=== PATIENT | female | born 1975 | race Caucasian/White ===

== ENCOUNTER 2024-12-08 18:39 | Inpatient (IN) | payer OTHER ==
[~2024-12-08] VITALS: Ht 160 cm; Wt 70.0 kg
[~2024-12-08 18:39] MED LIST: IBUP-1456 PO
[2024-12-08] MEDS ORDERED: KETOROLAC TROMETH 30 MG/ML 1ML VIAL IV PRN (19:30)
[2024-12-08 20:27] LABS: Basophils # (auto) 0 10 ^3/uL (0-0.2); Basophils % (auto) 0.1 % (0.0-2.0); Eosinophils # (auto) 0.1 10 ^3/uL (0-0.8); Eosinophils % (auto) 0.9 % (0.0-7.0); Hematocrit 37.9 % (36.0-46.0); Hemoglobin 12.8 g/dL (12.2-16.2); Lymphocytes # (auto) 0.7 10 ^3/uL (0.4-5.4); Lymphocytes % (auto) 10.3 % (10.0-50.0); Mean Corpuscular Hemoglobin 31.2 pg (28.0-32.0); Mean Corpuscular Hgb Conc. 33.7 g/dL (32.0-36.0); Mean Corpuscular Volume 92.7 fL (80.0-100.0); Monocytes # (auto) 0.4 10 ^3/uL (0-1.3); Monocytes % (auto) 5.7 % (0.0-12.0); Nucleated Red Blood Cells % 0.1 %; Platelet Count (auto) 283 10^3/uL (140-450); Red Blood Cells 4.09 10^6/uL (4.0-5.20); Red Cell Distribution Width 13.4 % (11.8-14.3); White Blood Cell 7.2 10^3/uL (4.4-10.8)
--- NOTE | 2024-12-08 20:27 | ED.PDOC ---
Altered Mental Status HPI Comments Cori Dominique is a 49-year-old female patient who presents to ED with chief complaint of loss of consciousness which lasted less than 1 minute with no prodromes, this occurred a few seconds after standing up after finishing with her work, who was by standard NSAID that she did not present any abnormal movements during loss of consciousness. Associated she presented dizziness, which is apparently very common since age of 23, but has been increasing in frequency for this past month. Patient reports these symptoms have constantly happened since receiving the radiotherapy due to laryngeal cancer at age of 23. She also reports she was never evaluated by a certified medical dosimetrist nor neurologist. She also reports episodes of constipation which happened occurring chronically (she associates it after receiving gastric sleeve surgery), up to two weeks. Denies fever, chills, palpitation, chest pain, dyspnea, nausea, vomiting, diarrhea, bleeding, dysuria and motor or sensory deficits. Past medical history: Multiple syncopal with prodromes episodes which were attributed to anemia/UTIs, laryngeal cancer status post treatment with radiotherapy at [facility] (age 23) hypothyroidism Surgical history: Gastric sleeve surgery nine years ago. Appendectomy, tonsillectomy Family history: Denies Social history: Lives in [place] with and two daughters. Smokes marijuana. Denies current tobacco, alcohol and other drug abuse Allergies: Narcotics/opiates, morphine Home medication: Laxative and levothyroxine. Chief Complaint: Syncope Time Seen by MD: 18:59 Allergies: Coded Allergies: Morphine (Verified Allergy, Unknown, 12/08/24) Uncoded Allergies: OPIATES (Allergy, Mild, 11/28/23) PT STATES NAUSEA AND VOMITING WITH ANY OPIATES. Home Meds Active Scripts Ibuprofen (Ibuprofen) 800 Mg Tab, 1 TAB PO TID PRN, #30 TAB 0 Refills Prov:JASON VORA 11/28/23 Reported Medications Levothyroxine Sodium (Levothyroxine Sodium) 75 Mcg Tab, 1 TAB PO DAILY, #30 TAB 5 Refills 12/09/24 Doxepin Hcl (Doxepin Hcl) 10 Mg Cap, 1 CAP PO QPM, #30 CAP 2 Refills 12/09/24 Mode of Arrival: EMS Past Medical History PAST MEDICAL HISTORY: Denies Surgical History: Denies all surgeries LACQUER SIZER History: No Pertinent LACQUER SIZER History Family History Family History: Unknown Social History Smoker: Non-Smoker Alcohol: Denies ETOH Use Drugs: Denies Drug Use Lives In: Home Physical Exam General Appearance: No Apparent Distress, Normal HEENT: Normal ENT Inspection, Pharynx Normal, TMs Normal Neck: Full Range of Motion, Non-Tender, Normal, Normal Inspection Respiratory: Chest Non-Tender, Lungs Clear, No Accessory Muscle Use, No Respiratory Distress, Normal Breath Sounds Cardiovascular: No Edema, No JVD, No Murmur, No Gallop, Normal Peripheral Pulses, Regular Rate/Rhythm Breast Exam: Deferred Gastrointestinal: No Organomegaly, Non Tender, No Pulsatile Mass, Normal Bowel Sounds, Soft Genitalia: Deferred Pelvic: Deferred Rectal: Deferred Extremities: No calf tenderness, Normal capillary refill, Normal inspection, Normal range of motion, Non-tender, No pedal edema Neurologic: Alert, maritime officer II-XII nml as Tested, No Motor Deficits, Normal Affect, Normal Mood, No Sensory Deficits Cerebellar Function: Normal Reflexes: Normal Skin: Dry, Normal Color, Warm Lymphatic: No Adenopathy Was a procedure done? Was a procedure done?: No Differential Diagnosis (ALOC) Differential Diagnosis: Dehydration, Seizure, CVA, Drug Overdose X-Ray, Labs, Meds, VS Vital Signs Date Time Temp Pulse Resp B/P (MAP) Pulse Ox O2 Delivery O2 Flow Rate FiO2 12/08/24 21:20 89 16 100 Room Air* 0 21 12/08/24 21:20 98.5 89 16 111/64 (80) 100 98.5 12/08/24 18:48 79 12/08/24 18:47 97.2 76 20 102/76 (85) 98 Lab Test 12/08/24 21:10 12/08/24 19:50 Range/Units Urine Color Colorless Yellow Urine Clarity Turbid H Clear Urine pH 6.0 5.0-9.0 Urine Specific [place] 1.009 1.001-1.035 Urine Protein Negative Negative Urine Ketones Trace Negative Urine Blood Negative Negative /uL Urine Nitrite Negative Negative Urine Bilirubin Negative Negative Urine Urobilinogen Normal Negative mg/dL Urine Leukocyte Esterase 2+ Negative /uL Urine RBC 5 0 - 4 /hpf Urine WBC 13 0 - 5 /hpf Urine Squamous Epithelial Cells Few <5 /hpf Urine Bacteria None seen None Seen /hpf Urine Glucose Normal Normal mg/dL Urine Test Negative Negative Urine Opiates Screen Neg NEGATIVE Urine Fentanyl Screen Neg NEGATIVE Urine Barbiturates Screen Neg NEGATIVE Urine Phencyclidine Screen Neg NEGATIVE Urine Amphetamines Screen Neg NEGATIVE Urine Benzodiazepines Screen Neg NEGATIVE Urine Cocaine Screen Neg NEGATIVE Urine Cannabinoids Screen Pos NEGATIVE White Blood Count 7.2 4.4-10.8 10^3/uL Red Blood Count 4.09 4.0-5.20 10^6/uL Hemoglobin 12.8 12.2-16.2 g/dL Hematocrit 37.9 36.0-46.0 % Mean Corpuscular Volume 92.7 80.0-100.0 fL Mean Corpuscular Hemoglobin 31.2 28.0-32.0 pg Mean Corpuscular Hemoglobin Concent 33.7 32.0-36.0 g/dL Red Cell Distribution Width 13.4 11.8-14.3 % Platelet Count 283 140-450 10^3/uL Mean Platelet Volume 7.4 6.9-10.8 fL Neutrophils (%) (Auto) 83.0 H 37.0-80.0 % Lymphocytes (%) (Auto) 10.3 10.0-50.0 % Monocytes (%) (Auto) 5.7 0.0-12.0 % Eosinophils (%) (Auto) 0.9 0.0-7.0 % Basophils (%) (Auto) 0.1 0.0-2.0 % Neutrophils # (Auto) 6.0 1.6-8.6 10 ^3/uL Lymphocytes # (Auto) 0.7 0.4-5.4 10 ^3/uL Monocytes # (Auto) 0.4 0-1.3 10 ^3/uL Eosinophils # (Auto) 0.1 0-0.8 10 ^3/uL Basophils # (Auto) 0 0-0.2 10 ^3/uL Nucleated Red Blood Cells 0.1 % Prothrombin Time 10.5 9.3-11.8 sec Prothrombin Time INR 0.99 0.9-1.15 Activated Partial Thromboplast Time 28.1 24.5-34.5 SEC Sodium Level 139 136-145 mmol/L Potassium Level 3.6 3.5-5.1 mmol/L Chloride Level 106 98-107 mmol/L Carbon Dioxide Level 26 20-31 mmol/L Anion Gap 7 5-15 Blood Urea Nitrogen 8 L 9-23 mg/dL Creatinine 0.75 0.550-1.02 mg/dL Glomerular Filtration Rate Calc 98 >90 mL/min BUN/Creatinine Ratio 10.7 10.0-20.0 Serum Glucose 87 74-106 mg/dL Lactic Acid Level 0.9 0.4-2.0 mmol/L Calcium Level 9.6 8.7-10.4 mg/dL Magnesium Level 2.1 1.6-2.6 mg/dL Total Bilirubin 0.7 0.2-1.0 mg/dL Aspartate Amino Transferase (AST) < 8 L 13-40 U/L Alanine Aminotransferase (ALT) 18 7-40 U/L Alkaline Phosphatase 64 46-116 U/L Ammonia < 10 L 11-32 umol/L Total Protein 6.2 5.7-8.2 g/dL Albumin 4.2 3.2-4.8 g/dL Thyroid Stimulating Hormone (TSH) 0.31 L 0.55-4.78 uIU/mL Free Thyroxine (T4) Calculated 1.42 0.89-1.76 ng/dL Free Triiodothyronine (T3) pg/mL 2.28 L 2.3-4.2 pg/mL X-Ray, Labs, Meds, VS Comment Addendum by Dr. Tg Lackey: Pt seen in conjunction with Dr Sosa. Agree with assessment, tx and plan. Time of 1ST Reevaluation: 20:26 Reevaluation 1ST: Improved Patient Education/Counseling: Diagnosis, Treatment, Prognosis, Need For Follow Up Family Education/Counseling: Diagnosis, Treatment, Prognosis, Need For Follow Up Departure 1 Departure Time of Disposition: 22:12 Impression: Primary Impression: Syncopal episodes Additional Impressions: Carotid sinus syncope Orthostatic syncope Disposition: 30 STILL A PATIENT Condition: Stable Additional Instructions: Received partial laboratories which were within normal limits accept TSH which was low, ordered free T3 and T4. X-rays and head CT were within normal limits. Carotid ultrasound showed severe external carotid stenosis, but no internal or common carotid stenosis. Recommended this time telemetry for at least 24-48 hours, complete echocardiogram, and rule out cardiac neurological causes of syncope at this point (patient was never evaluated by the specialist). We will admit patient to hospital. Critical Care Note Critical Care Time?: No Stability Stability form required: No Heart Score Heart Score: Heart Score Response (Comments) Value History N/A 0 EKG N/A 0 Age N/A 0 Risk Factors N/A 0 Troponin N/A 0 Total 0 NIKOLAI SOSA Dec 08, 2024 20:27 WARREN JOVEL MD Dec 10, 2024 04:27
[2024-12-08 20:38] LABS: Alanine Aminotransferase 18 U/L (7-40); Albumin 4.2 g/dL (3.2-4.8); Alkaline Phosphatase 64 U/L (46-116); Anion Gap 7 (5-15); BUN/Creatinine Ratio 10.7 (10.0-20.0); Calcium 9.6 mg/dL (8.7-10.4); Carbon Dioxide 26 mmol/L (20-31); Chloride 106 mmol/L (98-107); Glucose 87 mg/dL (74-106); Magnesium 2.1 mg/dL (1.6-2.6); Potassium 3.6 mmol/L (3.5-5.1); Sodium 139 mmol/L (136-145)
[2024-12-08 20:39] LABS: Aspartate Aminotransferase < 8 U/L (13-40); Bilirubin, Total 0.7 mg/dL (0.2-1.0); Blood Urea Nitrogen 8 mg/dL (9-23); Total Protein 6.2 g/dL (5.7-8.2)
[2024-12-08 20:41] LABS: INR 0.99 (0.9-1.15); Partial Thromboplastin Time 28.1 SEC (24.5-34.5); Prothrombin Time 10.5 sec (9.3-11.8)
--- NOTE | 2024-12-08 20:59 | DVH ---
US CAROTID DOPPLER CLINICAL INDICATION: Syncope TECHNIQUE: Multiple grayscale, color Doppler and spectral Doppler ultrasound images were obtained thr oughout both carotid systems. COMPARISON: None FINDINGS: RIGHT: CCA PSV: 74 cm/s ECA PSV: 461 cm/s proximally ICA PSV: 134 cm/s ICA EDV: 55 cm/s ICA/CCA Ratio: Less than 2 Vertebral artery: Patent, antegrade flow. Grayscale images demonstrate calcified plaque at the carotid bifurcation. Marked stenosis of the prox imal external carotid artery. Spectral analysis demonstrates no hemodynamically significant CCA or IC A stenosis. LEFT: CCA PSV: 69 cm/s ECA PSV: 54 cm/s ICA PSV: 98 cm/s ICA EDV: 41 cm/s ICA/CCA Ratio: Less than 2 Vertebral artery: Patent, antegrade flow. Grayscale images demonstrate no significant plaque or visible stenosis. Spectral analysis demonstrate s no hemodynamically significant CCA or ICA stenosis. IMPRESSION: 1. No evidence of hemodynamically significant CCA or ICA stenosis. 2. High-grade stenosis of the proximal right external carotid artery.
--- NOTE | 2024-12-08 21:06 | DVH ---
EXAM: XY R ELBOW 3 VIEW XRAY CLINICAL HISTORY: Syncope COMPARISON: XY R WRIST 3+ VIEW XRAY on DOS: 11/28/23 TECHNIQUE: XY R ELBOW 3 VIEW XRAY Findings/Impression: 3 views of the right elbow. There is no evidence of an acute fracture, dislocation, blastic, or lytic lesions. No radiopaque foreign bodies. No joint effusion or superficial soft tissue abnormalities.
--- NOTE | 2024-12-08 21:10 | DVH ---
EXAM: CT HEAD WITHOUT CONTRAST INDICATION: Syncope TECHNIQUE: CT of the head without intravenous contrast. Radiation Dose Information: CT Dose: CTDI volume is 51.07 mGy. Dose-length product is 818.88 mGy*cm The dose indicators for CT are the volume Computed Tomography (CT) Dose Index (CTDIvol) and the Dose Length Product (DLP), and are measured in units of mGy and mGy-cm, respectively. These indicators are not patient dose, but values generated from the CT scanner acquisition factors. The report includes radiation exposure data for exposures received during this examination. COMPARISON: CT CERVICAL WITHOUT CONTRAST on DOS: 11/28/23, CT HEAD WITHOUT CONTRAST on DOS: 11/28/23 FINDINGS: There is no evidence of acute intracranial hemorrhage, extra-axial collection, mass effect, midline s hift, herniation or hydrocephalus. The ventricles, sulci and cisterns are age appropriate. The rodas-white differentiation is intact. Patchy periventricular and subcortical white matter hypoattenuation is nonspecific but may be related to small vessel ischemic disease. The visualized paranasal sinuses and mastoid air cells are clear. The surrounding soft tissues and osseous structures are unremarkable. IMPRESSION: 1. No acute intracranial hemorrhage 2. No CT findings of territorial ischemia. HS:Y
--- NOTE | 2024-12-08 21:11 | DVH ---
EXAM: XY R WRIST 3+ VIEW XRAY CLINICAL HISTORY: Syncope COMPARISON: XY L WRIST 3+ VIEW XRAY on DOS: 11/28/23, XY R WRIST 3+ VIEW XRAY on DOS: 11/28/23 TECHNIQUE: XY R WRIST 3+ VIEW XRAY Findings/Impression: 3 views of the right wrist. There is no evidence of an acute fracture, dislocation, blastic, or lytic lesions. No radiopaque foreign bodies. No joint effusion or superficial soft tissue abnormalities.
--- NOTE | 2024-12-08 21:12 | DVH ---
CLINICAL INDICATION: Syncope TECHNIQUE: 3 radiographic views of the left hip were obtained. Comparison: XY R HIP COMPLETE XRAY on DOS: 11/28/23 FINDINGS/IMPRESSION: There is no evidence of acute fracture or dislocation. Radiopaque foreign body in the left abdomen may be in the descending colon The visualized joint space is well maintained. The alignment is anatomical. There is no radiopaque foreign body. HS:Y
[2024-12-08 21:20] VITALS: PULSE 89; RESP 16; O2SAT 100
[2024-12-08] MEDS: SODIUM CHLORIDE 0.9% 1,000 ML IV SCH (21:23)
[2024-12-08] MEDS: SODIUM CHLORIDE 0.9% 1,550 ML IV ONE (21:23)
[2024-12-08] MEDS: KETOROLAC TROMETH 30 MG/ML 1ML VIAL IV ONE (21:23)
[2024-12-08 21:55] LABS: Urine Bacteria None Seen /hpf (None Seen)
[2024-12-08 22:17] LABS: Urine Blood Negative /uL (Negative); Urine Clarity Turbid (Clear); Urine Color Colorless (Yellow); Urine Protein, UAD Negative (Negative); Urine Specific Gravity 1.009 (1.001-1.035); Urine Squamous Epithelial Cell FEW /hpf (<5); Urine Urobilinogen Normal (Negative); Urine WBC 13 /hpf (0 - 5)
[2024-12-08 22:22] LABS: Benzodiazephine Screen, Urine Neg (NEGATIVE); Cannabinoid Screen, Urine Pos (NEGATIVE)
[2024-12-08 22:26] LABS: Amphetamine Screen, Urine Neg (NEGATIVE); Barbiturate Scree,Urine Neg (NEGATIVE); Cocaine Screen, Urine Neg (NEGATIVE); Opiate Scree,Urine Neg (NEGATIVE); Phencyclidine Screen, Urine Neg (NEGATIVE)
[2024-12-08 22:29] LABS: Free T3 2.28 pg/mL (2.3-4.2)
[2024-12-08 22:30] LABS: Free T4 (Free Thyroxine) 1.42 ng/dL (0.89-1.76)
--- NOTE | 2024-12-08 22:45 | DVHHPRES ---
History of Present Illness Resident Creating Document: DEMETRIO ROBERTS RESIDENT History of Present Illness Patient is a 49-year-old female with past medical history of laryngeal carcinoma diagnosed 26 years ago s/p radiotherapy for 10 weeks daily, anemia s/p multiple transfusions, nutritional deficiency likely due to gastric sleeve, anxiety, hypothyroidism who came in due to syncope. According to the patient, for the past 6 weeks she has been experiencing presyncope/dizziness, she went to her PCP and was diagnosed with pyelonephritis on 11/26/2024 and was subsequently treated with Augmentin 875 b.i.d. for 10 days. Today in the evening on 12/08/2024 patient was walking when she had an episode of loss of consciousness lasting almost 1 minute, she denies any prodromal symptoms and states the next thing she knew she was lying on the floor. Patient also notes that she felt confused and foggy afterwards and sustained a bruise on her left hip, left knee, right wrist and hit the back of her head. Head CT showed no acute intracranial hemorrhage. Carotid Doppler showed no evidence of hemodynamically significant CCA or ICA stenosis. High-grade stenosis of the proximal right external carotid artery. Past hospitalization: In 2022 for pyelonephritis leading to sepsis Home medications: Doxepin, Klonopin, levothyroxine Past Medical History laryngeal carcinoma diagnosed 26 years ago s/p radiotherapy for 10 weeks daily, anemia s/p multiple transfusions, nutritional deficiency likely due to gastric sleeve, anxiety, hypothyroidism Past Surgical History Gastric Sleeve surgery 9 years ago, appendectomy, tonsillectomy Smoke: No ALCOHOL: rare Drugs: None Lives: with Family Review of Systems Constitutional: Yes: Chills, Malaise; No: Fever, Sweats, Weakness, Other Eyes: No: Pain, Vision change, Conjunctivae inflammation, Eyelid inflammation, Other, Redness ENT: No: Ear pain, Ear discharge, Nose pain, Nose discharge, Nose congestion, Mouth pain, Mouth swelling, Throat pain, Throat swelling, Other Respiratory: No: Cough, Dry, Shortness of breath, SOB with excertion, Wheezing, Hemoptysis, Pleuritic Pain, Sputum, Wheezing, Other Cardiovascular: Palpitations; No: Chest Pain, Orthopnea, Paroxysmal Noc. Dyspnea, Edema, Lt Headedness, Other Gastrointestinal: Constipation; No: Nausea, Vomiting, Abdominal Pain, Diarrhea, Melena, Hematochezia, Other Genitourinary: No Dysuria, No Frequency, No Incontinence, No Hematuria, No Retention, No Other Musculoskeletal: neck pain, arm pain, hand pain, leg pain; No: other, shoulder pain, back pain, foot pain Skin: No: Rash, Lesions, Jaundice, Bruising, Other Neurological: Confusion; No: Weakness, Numbness, Incoordination, Change in speech, Seizures, Other Allergies: Coded Allergies: Morphine (Verified Allergy, Unknown, 12/08/24) Uncoded Allergies: OPIATES (Allergy, Mild, 11/28/23) PT STATES NAUSEA AND VOMITING WITH ANY OPIATES. Medications Current Medications Medications Dose Ordered Sig/Charisma Route Start Time Stop Time Status Last Admin Dose Admin Sodium Chloride 1,000 ml @ 75 mls/hr [id number] IV 12/08/24 19:30 Ketorolac Tromethamine 15 mg Q6HPRN PRN IV 12/08/24 19:30 12/13/24 19:29 Exam Vital Signs Vital Signs Date Time Temp Pulse Resp B/P (MAP) Pulse Ox O2 Delivery O2 Flow Rate FiO2 12/08/24 21:20 89 16 100 Room Air* 0 21 12/08/24 21:20 98.5 111/64 (80) 98.5 General Appearance: Alert, Oriented X3, Cooperative, No acute distress HEENT: Atraumatic, PERRLA, EOMI, Mucous membr. moist/pink Respiratory: Clear to auscultation, Normal air movement Cardiovascular: Regular rate, Normal S1, Normal S2 Abdominal: Normal bowel sounds, Soft, No tenderness Extremities: No clubbing, No cyanosis, No edema, Normal pulses Skin: No rashes, No breakdown, No significant lesion Neuro: Normal gait, Normal speech, Strength at 5/5 X4 ext Psych/Mental Status: Mental status NL, Mood NL Labs/Xrays Labs Test 12/08/24 21:10 12/08/24 19:50 Range/Units Urine Color Colorless Yellow Urine Clarity Turbid H Clear Urine pH 6.0 5.0-9.0 Urine Specific [place] 1.009 1.001-1.035 Urine Protein Negative Negative Urine Ketones Trace Negative Urine Blood Negative Negative /uL Urine Nitrite Negative Negative Urine Bilirubin Negative Negative Urine Urobilinogen Normal Negative mg/dL Urine Leukocyte Esterase 2+ Negative /uL Urine RBC 5 0 - 4 /hpf Urine WBC 13 0 - 5 /hpf Urine Squamous Epithelial Cells Few <5 /hpf Urine Bacteria None seen None Seen /hpf Urine Glucose Normal Normal mg/dL Urine Test Negative Negative Urine Opiates Screen Neg NEGATIVE Urine Fentanyl Screen Neg NEGATIVE Urine Barbiturates Screen Neg NEGATIVE Urine Phencyclidine Screen Neg NEGATIVE Urine Amphetamines Screen Neg NEGATIVE Urine Benzodiazepines Screen Neg NEGATIVE Urine Cocaine Screen Neg NEGATIVE Urine Cannabinoids Screen Pos NEGATIVE White Blood Count 7.2 4.4-10.8 10^3/uL Red Blood Count 4.09 4.0-5.20 10^6/uL Hemoglobin 12.8 12.2-16.2 g/dL Hematocrit 37.9 36.0-46.0 % Mean Corpuscular Volume 92.7 80.0-100.0 fL Mean Corpuscular Hemoglobin 31.2 28.0-32.0 pg Mean Corpuscular Hemoglobin Concent 33.7 32.0-36.0 g/dL Red Cell Distribution Width 13.4 11.8-14.3 % Platelet Count 283 140-450 10^3/uL Mean Platelet Volume 7.4 6.9-10.8 fL Neutrophils (%) (Auto) 83.0 H 37.0-80.0 % Lymphocytes (%) (Auto) 10.3 10.0-50.0 % Monocytes (%) (Auto) 5.7 0.0-12.0 % Eosinophils (%) (Auto) 0.9 0.0-7.0 % Basophils (%) (Auto) 0.1 0.0-2.0 % Neutrophils # (Auto) 6.0 1.6-8.6 10 ^3/uL Lymphocytes # (Auto) 0.7 0.4-5.4 10 ^3/uL Monocytes # (Auto) 0.4 0-1.3 10 ^3/uL Eosinophils # (Auto) 0.1 0-0.8 10 ^3/uL Basophils # (Auto) 0 0-0.2 10 ^3/uL Nucleated Red Blood Cells 0.1 % Prothrombin Time 10.5 9.3-11.8 sec Prothrombin Time INR 0.99 0.9-1.15 Activated Partial Thromboplast Time 28.1 24.5-34.5 SEC Sodium Level 139 136-145 mmol/L Potassium Level 3.6 3.5-5.1 mmol/L Chloride Level 106 98-107 mmol/L Carbon Dioxide Level 26 20-31 mmol/L Anion Gap 7 5-15 Blood Urea Nitrogen 8 L 9-23 mg/dL Creatinine 0.75 0.550-1.02 mg/dL Glomerular Filtration Rate Calc 98 >90 mL/min BUN/Creatinine Ratio 10.7 10.0-20.0 Serum Glucose 87 74-106 mg/dL Lactic Acid Level 0.9 0.4-2.0 mmol/L Calcium Level 9.6 8.7-10.4 mg/dL Magnesium Level 2.1 1.6-2.6 mg/dL Total Bilirubin 0.7 0.2-1.0 mg/dL Aspartate Amino Transferase (AST) < 8 L 13-40 U/L Alanine Aminotransferase (ALT) 18 7-40 U/L Alkaline Phosphatase 64 46-116 U/L Ammonia < 10 L 11-32 umol/L Total Protein 6.2 5.7-8.2 g/dL Albumin 4.2 3.2-4.8 g/dL Thyroid Stimulating Hormone (TSH) 0.31 L 0.55-4.78 uIU/mL Free Thyroxine (T4) Calculated 1.42 0.89-1.76 ng/dL Free Triiodothyronine (T3) pg/mL 2.28 L 2.3-4.2 pg/mL Assessment/Plan Assessment/Plan Recurrent syncopal episodes Rule out stroke, cardiac etiology, carotid sinus hypersensitivity, doxepin induced? Stenosis of proximal right external carotid artery, high-grade - head CT: No acute intracranial abnormality - carotid Doppler: No evidence of hemodynamically significant CCA or ICA stenosis. High-grade stenosis of the proximal right external carotid artery. - elbow x-ray: There is no evidence of an acute fracture, dislocation, blastic, or lytic lesions. - hip x-ray: There is no evidence of acute fracture or dislocation. - wrist x-ray:There is no evidence of an acute fracture, dislocation, blastic, or lytic lesions. - IV NS at 75 cc/hour - orthostatic vital signs, iron panel, morning cortisol - neurology consulted - cardiology consulted - currently holding doxepin and clonazepam Hypothyroidism, TSH 0.31, free T4 1.42, free T3 2.28 - currently holding home levothyroxine History of laryngeal carcinoma 26 years ago, s/p radiotherapy - monitor Constipation - lactulose p.o. once Goals of care: Full code, discussed for >16 minutes on 12/09/2024 Plan discussed with patient Plan discussed with Dr. Colbert Plan discussed with: Patient, Other (RN) Date of Service: Dec 08, 2024 Billing Provider: KRISTI COLBERT MD Common Visit Codes: [id number] INP/OBS CARE (HIGH) DEMETRIO ROBERTS RESIDENT Dec 08, 2024 22:45 KRISTI COLBERT MD Dec 09, 2024 08:21
[2024-12-09] MEDS: IBUPROFEN 600 MG TAB PO PRN (01:10)
[2024-12-09] MEDS: LACTULOSE 20Gm/30ML SOLN PO ONE (01:10)
[2024-12-09 08:43] VITALS: PULSE 80; RESP 15; O2SAT 98
[2024-12-09] MEDS ORDERED: PANTOPRAZOLE 40 MG TAB PO SCH (09:00)
[2024-12-09 09:11] LABS: % Iron Saturation 19.1 % (15-50)
[2024-12-09] MEDS: PANTOPRAZOLE 40 MG TAB PO ONE (09:22)
--- NOTE | 2024-12-09 09:31 | DVHINCON2 ---
Date of service: Dec 09, [address] Rodney Reason for Consultation Syncope, confusion History of Present Illness Ms. Dominique is a 49 years old right-handed female with a history of laryngeal cancer, hypothyroidism, obesity, she was brought to the [facility] on 12/08/2024 with a chief company of passing out. At this time, she was alert and fully oriented, her is with her in the room, she provided the following history On 12/08/2024, she was walking inside the house, but the next memory was waking up from a passing out, with confusion and foggy feeling, but on waking up, she was consciousness to person, place, and she new she was working from home. She passed out for less than 1 minutes. There was no dizziness, hot feeling, chest pain, nausea, vomiting associated with event For the last 12 years, the patient was has had similar passing out event, but it was associated with dizziness as warning symptoms, and mostly the patient is able to see down to avoid a passing out. She typically pass out for less 1 minute, and on wake, she was conscious to everything. She was had total 6-7 event in 2023. She was seen many doctors in different offices, Hospital, but etiology remained unclear She does not paresthesia in the lower extremities She drinks about two bottles of water daily Urinalysis, 12/08/2024: WBC: 13, urine leukocyte esterase: 2+ UDS, 12/08/2024: Positive CBC, 12/08/2024: Unremarkable new line CMP, 12/08/2024: Unremarkable TSH, 12/08/2024: 0.31 FT4, 12/08/2024: 1.42 Carotid Doppler 12/08/2024: 1. No evidence of hemodynamically significant CCA or ICA stenosis. 2. High-grade stenosis of the proximal right external carotid artery CT head, 12/08/2024: 1. No acute intracranial hemorrhage 2. No CT findings of territorial ischemia. Past Medical History Multiple syncopal with prodromes episodes which were attributed to anemia/UTIs, laryngeal cancer status post treatment with radiotherapy at [facility] (age 23) hypothyroidism Past Surgical History Appendectomy, gastric sleeve (nine years ago), tonsillectomy Family History No major medical problems Social History She was not tobacco smoke, no history of alcohol or recreational substance abuse Allergies: Coded Allergies: Morphine (Verified Allergy, Unknown, 12/08/24) Uncoded Allergies: OPIATES (Allergy, Mild, 11/28/23) PT STATES NAUSEA AND VOMITING WITH ANY OPIATES. Home Meds Active Scripts Ibuprofen (Ibuprofen) 800 Mg Tab, 1 TAB PO TID PRN, #30 TAB 0 Refills Prov:JASON VORA SHAYLA 11/28/23 Current Medications Current Medications Medications (Trade) Dose Ordered Sig/Charisma Route PRN Reason Start Time Stop Time Status Last Admin Sodium Chloride 1,000 ml @ 75 mls/hr [id number] IV 12/08/24 19:30 12/09/24 08:46 Ketorolac Tromethamine (Toradol Injection) 15 mg Q6HPRN PRN IV MODERATE PAIN (4-6 PAIN SCALE) 12/08/24 19:30 12/13/24 19:29 Ibuprofen (Motrin Tablet) 600 mg Q6HP PRN PO PAIN SCALE 7 THRU 10 12/08/24 23:00 12/09/24 09:24 Pantoprazole Sodium (Protonix Tablet) 40 mg DAILY@0600 PO 12/09/24 09:00 12/09/24 09:13 DC Pantoprazole Sodium (Protonix Tablet) 40 mg DAILY@0600 PO 12/10/24 06:00 Review of Systems As above, the other systems are negative Vital Signs Vital Signs Date Time Temp Pulse Resp B/P (MAP) Pulse Ox O2 Delivery O2 Flow Rate FiO2 12/09/24 08:43 80 15 98 Room Air* 0 21 12/09/24 08:39 98.2 111/60 (77) 98.2 Physical Exam GENERAL EXAM: General: the patient is well developed and nourished. No acute distress. HEENT: Normocephalic, neck is supple, no carotid bruits. No mass. RESPIRATORY: Normal respiratory effort with symmetrical lung expansion. Lungs clear to auscultation. CARDIOVASCULAR: Regular rate and rhythm with no murmurs. S1, S2. ABDOMEN: Soft, nontender, normal bowel sound NEUROLOGICAL: MENTAL STATUS: Awake and alert. Oriented to person, place, time and general circumstances. Able to give personal history. SPEECH, LANGUAGE, HIGHER CORTICAL FUNCTION: No aphasia, mild dysarthria CRANIAL NERVES: #2: Intact visual mccarty to confrontation. The optic discs were sharp #3,4,6: Pupils are equal, round and reactive. EOMs full and conjugate. No nystagmus. #5: Facial sensation intact in all three divisions bilaterally. Mandibular strength intact. #7: Facial muscles symmetrical and strength intact. #8: Hearing grossly normal to voice. #9,10: Uvula and soft palate rise in the midline. Swallow and voice are normal. #11: Trapezius and sternomastoid strength intact bilaterally. #12: Tongue midline. No fasciculations or atrophy. SENSATION: Sensation to touch and pinprick is normal. MOTOR: Normal tone in the upper and lower extremity. Normal muscle bulk. No fasciculations. No abnormal movements or posturing. Muscle strength of the major groups in the upper extremities is 5/5. Muscle strength of the major groups in the lower extremities is 5/5. REFLEXES: Deep tendon reflexes are symmetrical. No pathological reflexes. CEREBELLAR/COORDINATION: Finger to nose is normal bilaterally. GAIT/STATION: deferred. Labs/Diagnostic Data Labs Test 12/09/24 07:36 12/08/24 21:10 12/08/24 19:50 Range/Units Cortisol AM Sample 15.05 5.27-22.45 ug/dL Urine Color Colorless Yellow Urine Clarity Turbid H Clear Urine pH 6.0 5.0-9.0 Urine Specific [place] 1.009 1.001-1.035 Urine Protein Negative Negative Urine Ketones Trace Negative Urine Blood Negative Negative /uL Urine Nitrite Negative Negative Urine Bilirubin Negative Negative Urine Urobilinogen Normal Negative mg/dL Urine Leukocyte Esterase 2+ Negative /uL Urine RBC 5 0 - 4 /hpf Urine WBC 13 0 - 5 /hpf Urine Squamous Epithelial Cells Few <5 /hpf Urine Bacteria None seen None Seen /hpf Urine Glucose Normal Normal mg/dL Urine Test Negative Negative Urine Opiates Screen Neg NEGATIVE Urine Fentanyl Screen Neg NEGATIVE Urine Barbiturates Screen Neg NEGATIVE Urine Phencyclidine Screen Neg NEGATIVE Urine Amphetamines Screen Neg NEGATIVE Urine Benzodiazepines Screen Neg NEGATIVE Urine Cocaine Screen Neg NEGATIVE Urine Cannabinoids Screen Pos NEGATIVE White Blood Count 7.2 4.4-10.8 10^3/uL Red Blood Count 4.09 4.0-5.20 10^6/uL Hemoglobin 12.8 12.2-16.2 g/dL Hematocrit 37.9 36.0-46.0 % Mean Corpuscular Volume 92.7 80.0-100.0 fL Mean Corpuscular Hemoglobin 31.2 28.0-32.0 pg Mean Corpuscular Hemoglobin Concent 33.7 32.0-36.0 g/dL Red Cell Distribution Width 13.4 11.8-14.3 % Platelet Count 283 140-450 10^3/uL Mean Platelet Volume 7.4 6.9-10.8 fL Neutrophils (%) (Auto) 83.0 H 37.0-80.0 % Lymphocytes (%) (Auto) 10.3 10.0-50.0 % Monocytes (%) (Auto) 5.7 0.0-12.0 % Eosinophils (%) (Auto) 0.9 0.0-7.0 % Basophils (%) (Auto) 0.1 0.0-2.0 % Neutrophils # (Auto) 6.0 1.6-8.6 10 ^3/uL Lymphocytes # (Auto) 0.7 0.4-5.4 10 ^3/uL Monocytes # (Auto) 0.4 0-1.3 10 ^3/uL Eosinophils # (Auto) 0.1 0-0.8 10 ^3/uL Basophils # (Auto) 0 0-0.2 10 ^3/uL Nucleated Red Blood Cells 0.1 % Prothrombin Time 10.5 9.3-11.8 sec Prothrombin Time INR 0.99 0.9-1.15 Activated Partial Thromboplast Time 28.1 24.5-34.5 SEC Sodium Level 139 136-145 mmol/L Potassium Level 3.6 3.5-5.1 mmol/L Chloride Level 106 98-107 mmol/L Carbon Dioxide Level 26 20-31 mmol/L Anion Gap 7 5-15 Blood Urea Nitrogen 8 L 9-23 mg/dL Creatinine 0.75 0.550-1.02 mg/dL Glomerular Filtration Rate Calc 98 >90 mL/min BUN/Creatinine Ratio 10.7 10.0-20.0 Serum Glucose 87 74-106 mg/dL Lactic Acid Level 0.9 0.4-2.0 mmol/L Calcium Level 9.6 8.7-10.4 mg/dL Magnesium Level 2.1 1.6-2.6 mg/dL Total Bilirubin 0.7 0.2-1.0 mg/dL Aspartate Amino Transferase (AST) < 8 L 13-40 U/L Alanine Aminotransferase (ALT) 18 7-40 U/L Alkaline Phosphatase 64 46-116 U/L Ammonia < 10 L 11-32 umol/L Total Protein 6.2 5.7-8.2 g/dL Albumin 4.2 3.2-4.8 g/dL Thyroid Stimulating Hormone (TSH) 0.31 L 0.55-4.78 uIU/mL Free Thyroxine (T4) Calculated 1.42 0.89-1.76 ng/dL Free Triiodothyronine (T3) pg/mL 2.28 L 2.3-4.2 pg/mL Assessment Recurrent syncope/presyncope events, etiology unclear Plan/Recommendation Monitoring Supportive treatment Telemetry EEG MR brain scan Syncopal precautions discussed Cardiology evaluation More recommendation per clinical course Prognosis: Poor This medical document was created using an electronic medical record system with go2 media dictation system. Although this document has been carefully reviewed, there may still be some phonetic and typographical errors. These areas are purely typographical due to imperfections of the software programs, and do not reflect any compromise in the patient's medical care. Plan discussed with: Patient, Spouse, Other EMILI REID MD Dec 09, 2024 09:31
--- NOTE | 2024-12-09 09:51 | ECG ---
[facility] Test Date: 2024-12-08 Test Time: 18:48:18 Pat Name: HAL DUNNE Department: ER Room: [address] [place] [address] Gender: F Store Detective: GARRETT : 1975 Requested By: NEVILLE GOMEZ Order Number: [id number] Reading MD: Measurements Intervals [place] Rate: 79 P: 49 FL: 140 QRS: 75 QRSD: 90 T: 34 QT: 414 QTc: 475 Interpretive Statements Sinus rhythm Low voltage, precordial leads Borderline T abnormalities, anterior leads Please click the below link to view image of tracing.
--- NOTE | 2024-12-09 11:23 | DVH ---
MRI BRAIN WITHOUT CONTRAST CLINICAL HISTORY: aloc TECHNIQUE: Multiplanar, multisequence MR images of the brain without intravenous contrast. Comparison: None FINDINGS: CT head 12/08/2024 There is no restricted diffusion. There are few scattered small hyperintense T2 foci in the supratent orial white matter May relate to minimal chronic microvascular ischemic changes. There is no evidence of hemorrhage, mass, mass effect or midline shift. There is no hydrocephalus or extra-axial fluid co llection. The visualized intracranial vasculature demonstrates appropriate flow-voids. The sagittal m idline structures appear unremarkable. The craniocervical junction is within normal limits. The kimo rium demonstrates normal marrow signal. The paranasal sinuses and mastoid air cells are clear. IMPRESSION: 1. There is no acute intracranial process. HS:Y
--- NOTE | 2024-12-09 12:31 | DVHINCON2 ---
Date Seen: Dec 09, 2024 Referring Physician MD [place] resident Reason for Consultation Syncope, questionable carotid sinus hypersensitivity History of Present Illness This is a 49-year-old female patient who presents to the emergency room with chief complaint of syncopal episode. The patient states that she has been having dizziness and syncopal episodes for the past six weeks. On the day of admission, the patient reports that she was at home when suddenly she experienced a syncopal episode without warning. She denies any previous dizziness or lightheadedness prior to event. Luckily, the patient's was home and heard when she fell. The patient's found the patient lying flat on her back. The patient reports loss of consciousness and reports hitting the back of her head. EMS was called and the patient was brought to the emergency room for further evaluation. Cardiology has now been consulted for sy ncope to rule out cardiac etiology. Initial twelve lead electrocardiogram reveals normal sinus rhythm with nonspecific ST segment changes to anteroseptal leads. No troponin levels drawn on this admission. Patient denies any cardiac symptoms such as chest pain, shortness of breath, or palpitations. Significant past medical history includes laryngeal carcinoma status post radiation therapy 26 years ago, anemia, thyroid disease, and anxiety. The patient also reports a recent pyelonephritis infection that was treated with antibiotics. Past Medical History Past medical history reviewed. No other significant than mentioned above. Past Surgical History Gastric sleeve Appendectomy Tonsillectomy Family History Family history reviewed. Social History Patient denies any nicotine or tobacco use Patient admits to occasional marijuana use , denies all other illicit drugs Patient denies any alcohol use Allergies: Coded Allergies: Morphine (Verified Allergy, Unknown, 12/08/24) Uncoded Allergies: OPIATES (Allergy, Mild, 11/28/23) PT STATES NAUSEA AND VOMITING WITH ANY OPIATES. Home Meds Active Scripts Ibuprofen (Ibuprofen) 800 Mg Tab, 1 TAB PO TID PRN, #30 TAB 0 Refills Prov:JASON VORA 11/28/23 Home Meds Home medications reviewed. Current Medications Current Medications Medications (Trade) Dose Ordered Sig/Charisma Route PRN Reason Start Time Stop Time Status Last Admin Sodium Chloride 1,000 ml @ 75 mls/hr [id number] IV 12/08/24 19:30 12/09/24 08:46 Ketorolac Tromethamine (Toradol Injection) 15 mg Q6HPRN PRN IV MODERATE PAIN (4-6 PAIN SCALE) 12/08/24 19:30 12/13/24 19:29 Ibuprofen (Motrin Tablet) 600 mg Q6HP PRN PO PAIN SCALE 7 THRU 10 12/08/24 23:00 12/09/24 09:24 Pantoprazole Sodium (Protonix Tablet) 40 mg DAILY@0600 PO 12/09/24 09:00 12/09/24 09:13 DC Pantoprazole Sodium (Protonix Tablet) 40 mg DAILY@0600 PO 12/10/24 06:00 Lorazepam (Ativan Inj) 1 mg ONCE PRN IV MRI 12/09/24 10:30 Review of Systems Constitutional: No symptom reported Ears, Nose, & Throat: No symptom reported Eyes: No symptom reported Neurological: Syncope Pulmonary/Respiratory: No symptoms reported Cardiovascular: No symptom reported Gastrointestinal: No symptom reported Genitourinary: No symptom reported Musculoskeletal: No symptom reported Skin: No symptom reported Psychiatric: No symptom reported Endocrine: No symptom reported Hematologic/Lymphatic: No symptom reported Vital Signs Vital Signs Date Time Temp Pulse Resp B/P (MAP) Pulse Ox O2 Delivery O2 Flow Rate FiO2 12/09/24 10:40 90 12 95/44 (61) 97 12/09/24 08:43 Room Air* 0 21 12/09/24 08:39 98.2 98.2 Physical Exam General Appearance: Cooperative. Well-developed. Well-nourished. No acute distress. Pulmonary/Respiratory: Clear, bilateral breaths sounds. Cardiovascular/Chest: Regular rate and rhythm. Peripheral Pulses: 2+ Radial (R). 2+ Radial (L). 2+ Pedal (R). 2+ Pedal (L) Abdominal Exam: Normal bowel sounds. Ankle Exam: Negative ankle edema Lower extremities: Negative lower extremity edema Neuro/Mental Status: A/OX4, coherent. Thoughts/Psych: Normal thought pattern. Appropriate mood and affect. Good judgment and insight. Appearance: No acute distress. Skin Exam: Normal inspection. Normal color. Warm and dry. Labs/Diagnostic Data Labs Test 12/09/24 07:36 12/08/24 21:10 12/08/24 19:50 Range/Units Iron Level 37 L 50-170 ug/dL Total Iron Binding Capacity 194 L 250-425 ug/dL Percent Iron Saturation 19.1 15-50 % Cortisol AM Sample 15.05 5.27-22.45 ug/dL Urine Color Colorless Yellow Urine Clarity Turbid H Clear Urine pH 6.0 5.0-9.0 Urine Specific [place] 1.009 1.001-1.035 Urine Protein Negative Negative Urine Ketones Trace Negative Urine Blood Negative Negative /uL Urine Nitrite Negative Negative Urine Bilirubin Negative Negative Urine Urobilinogen Normal Negative mg/dL Urine Leukocyte Esterase 2+ Negative /uL Urine RBC 5 0 - 4 /hpf Urine WBC 13 0 - 5 /hpf Urine Squamous Epithelial Cells Few <5 /hpf Urine Bacteria None seen None Seen /hpf Urine Glucose Normal Normal mg/dL Urine Test Negative Negative Urine Opiates Screen Neg NEGATIVE Urine Fentanyl Screen Neg NEGATIVE Urine Barbiturates Screen Neg NEGATIVE Urine Phencyclidine Screen Neg NEGATIVE Urine Amphetamines Screen Neg NEGATIVE Urine Benzodiazepines Screen Neg NEGATIVE Urine Cocaine Screen Neg NEGATIVE Urine Cannabinoids Screen Pos NEGATIVE White Blood Count 7.2 4.4-10.8 10^3/uL Red Blood Count 4.09 4.0-5.20 10^6/uL Hemoglobin 12.8 12.2-16.2 g/dL Hematocrit 37.9 36.0-46.0 % Mean Corpuscular Volume 92.7 80.0-100.0 fL Mean Corpuscular Hemoglobin 31.2 28.0-32.0 pg Mean Corpuscular Hemoglobin Concent 33.7 32.0-36.0 g/dL Red Cell Distribution Width 13.4 11.8-14.3 % Platelet Count 283 140-450 10^3/uL Mean Platelet Volume 7.4 6.9-10.8 fL Neutrophils (%) (Auto) 83.0 H 37.0-80.0 % Lymphocytes (%) (Auto) 10.3 10.0-50.0 % Monocytes (%) (Auto) 5.7 0.0-12.0 % Eosinophils (%) (Auto) 0.9 0.0-7.0 % Basophils (%) (Auto) 0.1 0.0-2.0 % Neutrophils # (Auto) 6.0 1.6-8.6 10 ^3/uL Lymphocytes # (Auto) 0.7 0.4-5.4 10 ^3/uL Monocytes # (Auto) 0.4 0-1.3 10 ^3/uL Eosinophils # (Auto) 0.1 0-0.8 10 ^3/uL Basophils # (Auto) 0 0-0.2 10 ^3/uL Nucleated Red Blood Cells 0.1 % Prothrombin Time 10.5 9.3-11.8 sec Prothrombin Time INR 0.99 0.9-1.15 Activated Partial Thromboplast Time 28.1 24.5-34.5 SEC Sodium Level 139 136-145 mmol/L Potassium Level 3.6 3.5-5.1 mmol/L Chloride Level 106 98-107 mmol/L Carbon Dioxide Level 26 20-31 mmol/L Anion Gap 7 5-15 Blood Urea Nitrogen 8 L 9-23 mg/dL Creatinine 0.75 0.550-1.02 mg/dL Glomerular Filtration Rate Calc 98 >90 mL/min BUN/Creatinine Ratio 10.7 10.0-20.0 Serum Glucose 87 74-106 mg/dL Lactic Acid Level 0.9 0.4-2.0 mmol/L Calcium Level 9.6 8.7-10.4 mg/dL Magnesium Level 2.1 1.6-2.6 mg/dL Total Bilirubin 0.7 0.2-1.0 mg/dL Aspartate Amino Transferase (AST) < 8 L 13-40 U/L Alanine Aminotransferase (ALT) 18 7-40 U/L Alkaline Phosphatase 64 46-116 U/L Ammonia < 10 L 11-32 umol/L Total Protein 6.2 5.7-8.2 g/dL Albumin 4.2 3.2-4.8 g/dL Thyroid Stimulating Hormone (TSH) 0.31 L 0.55-4.78 uIU/mL Free Thyroxine (T4) Calculated 1.42 0.89-1.76 ng/dL Free Triiodothyronine (T3) pg/mL 2.28 L 2.3-4.2 pg/mL Assessment Syncope, rule out cardiac etiology Thyroid disease, (TSH 0.31) History of anemia History of laryngeal carcinoma status post radiation 26 years ago Marijuana use Plan/Recommendation We will continue with the following plan/recommendations (Dr. Taylor): Patient seen and examined at bedside with . Transthoracic echocardiogram reveals EF 60% with no regional wall motion abnormalities. Carotid ultrasound reveals no evidence of hemodynamically significant ICA stenosis, but found high-grade stenosis of proximal right external carotid artery, likely not attributed to syncope. The patient mentions recent pyelonephritis. Patient also hypotensive at time of assessment. After discussing case with MD, patient syncope likely secondary to dehydration. We would like to recommend adequate IV fluid hydration. Per Cardiology standpoint, there is no further inpatient cardiac workup indicated at this time. Please feel free to reconsult if needed. Thank you for allowing us to care for this patient. Please call with any questions or concerns. Critical care time spent: 44 minutes This medical document was created using an electronic medical record system with voice recognition software and computerized dictation system. Although this document has been carefully reviewed, there might still be some phonetic and typographical errors. Occasional wrong-word or ``sound-alike substitutions may have occurred due to the inherent limitations of voice recognition software. These areas are purely typographical due to imperfections of the software programs and do not reflect any compromise in the patient's medical care. Please read the chart carefully and recognize, using context, where these substitutions have occurred. Plan discussed with: Patient, Spouse NYHA Physical activity limitations: NA Date of Service: Dec 09, 2024 Billing Provider: JANETH TAYLOR MD Cardiology Common Codes: [id number] INP/OBS CARE (High) Cardiology Consultation Codes: [id number] CONSULT <45MIN BUTCH HOLLOWAY Dec 09, 2024 12:30
[2024-12-09] MEDS: SODIUM CHLORIDE 0.9% 500 ML IV ONE (12:45)
[2024-12-09] MEDS: SODIUM CHLORIDE 0.9% 1,000 ML IV ONE (12:45)
[2024-12-09] MEDS: NOREPINEPHRINE 8 MG/250ML KIT 250 ML IV SCH (14:15)
--- NOTE | 2024-12-09 15:30 | DVHSR ---
APPROVED REPORT EXAM: Two-dimensional and M-mode echocardiogram with Doppler and color Doppler. Blood Pressure: 96/50 mmHg INDICATION Syncope RISK FACTORS Obesity: Height: 5'3, Weight: 154 DIMENSIONS LVDd4.2 (3.8-5.7cm)LA (2D)3.0 (1.9-4.0cm)Aortic Root2.4 (2.0-3.7cm) LVDs3.1 (2.5-4.0cm)LA (MM) (1.9-4.0cm)Aortic Cusp Exc1.2 (1.5-2.0cm) EF (%) 60.0 (55-70%)Rt. Atrium2.2 (1.9-4.0cm)Asc. Aorta cm IVSd0.7 (0.7-1.1cm)RV (D) (1.8-2.4cm) PWd0.9 (0.7-1.1cm) Mitral Valve MitralMitral Stenosis E wave0.70m/sMV Mean GR.mmHg A wave0.65m/sMV Peak GR.mmHg E/A ratio1.12D MVAcm2 DECEL [id number] 1/2 Timems Aortic Valve Aortic ValveAortic Stenosis V11.00m/Demetra Mean GR.5mmHg V21.34m/Demetra Peak GR.7mmHg LVOT Diameter1.8 (1.8-2.4cm)Doppler AVA1.90cm2 Pulmonic Valve V20.95m/s LEFT VENTRICLE The left ventricle is of normal size. Wall thickness is normal. Ejection fraction is normal and is estimated at 60%. There is no regional wall motion abnormalities. Diastolic function is preserved. RIGHT VENTRICLE The right ventricle is likely of normal size. Systolic function is normal. ATRIA Both atria are normal. Not well visualized. MITRAL VALVE Normal structure and function. No significant mitral regurgitation. PULMONIC VALVE Likely normal. TRICUSPID VALVE Normal structure and function. There is trace tricuspid regurgitation. PA systolic pressure is not adequately estimated. AORTIC VALVE Normal structure and function. GREAT VESSELS Aortic root is of normal size. PERICARDIAL EFFUSION No pericardial effusion. IVC is of normal size and collapses normally with inspiration. Other Information Technically limited study due to patient position. Conclusion Normal left ventricular size and systolic function. Ejection fraction is estimated at 60%. Normal right ventricular size and systolic function. No hemodynamically significant valvular disease. No pericardial effusion. PA systolic pressure could not be estimated.
[2024-12-09] MEDS: MIDODRINE HCL 10 MG TAB PO SCH (18:38)
[2024-12-09] MEDS: ONDANSETRON HCL 4 MG/2 ML VIAL IV PRN (18:38)
[2024-12-09 20:00] VITALS: PULSE 81; RESP 13; O2SAT 100
--- NOTE | 2024-12-09 21:48 | DVHPNRES ---
Progress Note Date Seen: Dec 09, 2024 Resident Creating Document: GA BRENNAN RESIDENT Has the PT tested + for MRSA If YES, has PT been informed?: No Medical Necessity Reason Pt with a Central, PICC or Fol: No Subjective Review of Systems A 49-year-old female patient who presents to ED with chief complaint of loss of consciousness which lasted less than 1 minute with no prodromes, this occurred a few seconds after standing up after finishing with her work, stated that she did not present any abnormal movements during loss of consciousness. Associated she presented dizziness, which is apparently very common since age of 23, but has been increasing in frequency for this past month. Patient reports these symptoms have constantly happened since receiving the radiotherapy due to laryngeal cancer at age of 23. She also reports she was never evaluated by a section leader screen printing nor neurologist. She also reports episodes of constipation which happened occurring chronically (she associates it after receiving gastric sleeve surgery), up to two weeks. Denies fever, chills, palpitation, chest pain, dyspnea, nausea, vomiting, diarrhea, bleeding, dysuria and motor or sensory deficits. Past medical history: Multiple syncopal with prodromes episodes which were attributed to anemia/UTIs, laryngeal cancer status post treatment with radiotherapy at [facility] (age 23) hypothyroidism Surgical history: Gastric sleeve surgery nine years ago. Appendectomy, tonsillectomy Family history: Denies Social history: Lives in [place] with and two daughters. Smokes marijuana. Denies current tobacco, alcohol and other drug abuse Allergies: Narcotics/opiates, morphine Home medication: Laxative and levothyroxine. Objective vital signs Vital Sign Date Time Temp Pulse Resp B/P (MAP) Pulse Ox O2 Delivery O2 Flow Rate FiO2 12/09/24 20:00 81 13 100 Room Air* 0 21 12/09/24 20:00 97.8 105/57 (73) 97.8 Total Intake and Output 12/08/24 12/08/24 12/09/24 15:00 23:00 07:00 Intake Total 1550 ml Balance 1550 ml medications Current Medications Medications Dose Ordered Sig/Charisma Route Start Time Stop Time Status Last Admin Dose Admin Sodium Chloride 1,000 ml @ 75 mls/hr [id number] IV 12/08/24 19:30 12/09/24 08:46 75 MLS/HR Ketorolac Tromethamine 15 mg Q6HPRN PRN IV 12/08/24 19:30 12/13/24 19:29 Ibuprofen 600 mg Q6HP PRN PO 12/08/24 23:00 12/09/24 16:21 600 MG Pantoprazole Sodium 40 mg DAILY@0600 PO 12/10/24 06:00 Lorazepam 1 mg ONCE PRN IV 12/09/24 10:30 Midodrine 10 mg TID@0600,1200,1800 PO 12/09/24 18:00 12/09/24 18:38 10 MG Ondansetron HCl 4 mg Q4HPRN PRN IV 12/09/24 18:30 12/09/24 18:38 4 MG Examination GENERAL EXAM: General: the patient is well developed and nourished. No acute distress. HEENT: Normocephalic, neck is supple, no carotid bruits. No mass. RESPIRATORY: Normal respiratory effort with symmetrical lung expansion. Lungs clear to auscultation. CARDIOVASCULAR: Regular rate and rhythm with no murmurs. S1, S2. ABDOMEN: Soft, nontender, normal bowel sound NEURO: no focal deficit laboratory and microbiology Laboratory Tests 12/08/24 19:50 Test 12/08/24 19:50 Range/Units Serum Glucose 87 74-106 mg/dL Problem List/Assessment/Plan Problem List/Assessment/Plan Syncope due to dehydration Hypotension Possible autonomic dysfunction Recurrent syncopal episodes Stenosis of proximal right external carotid artery, high-grade - head CT: No acute intracranial abnormality - carotid Doppler: No evidence of hemodynamically significant CCA or ICA stenosis. High-grade stenosis of the proximal right external carotid artery. - elbow x-ray: There is no evidence of an acute fracture, dislocation, blastic, or lytic lesions. - hip x-ray: There is no evidence of acute fracture or dislocation. - wrist x-ray:There is no evidence of an acute fracture, dislocation, blastic, or lytic lesions. - IV fluids -Midodrine due to hypotension - orthostatic vital signs iron panel, morning cortisol: normal - neurology consulted: ordered MRI which didnt show any abnormalities - cardiology consulted: no cardiac etiology ECHO normal EF - currently holding doxepin and clonazepam Usually external carotid artery stenosis is not related to syncope, no need of vascular surgery consult for now Hypothyroidism, TSH 0.31, free T4 1.42, free T3 2.28 - currently holding home levothyroxine History of laryngeal carcinoma 26 years ago, s/p radiotherapy - monitor Constipation - lactulose p.o. once Goals of care: Full code, discussed for >16 minutes on 12/09/2024 Plan discussed with patient Plan discussed with Dr. Villatoro Plan discussed with: Patient, Other (rn) My Orders My Orders Orders - GA BRENNAN RESIDENT Procedure Category Date Status Time Midodrine Tablet PHA 12/09/24 In Process (Proamatine Tablet) 18:00 Orthostatic Vital ORDERS 12/09/24 Transmitted Signs 17:53 Orthostatic Vital ED NURSING 12/09/24 Transmitted Signs Date of Service: Dec 09, 2024 Billing Provider: CELESTINE VILLATORO MD Common Visit Codes: 14534-COMPMOAGVD INP/OBS CARE(HIGH) GA BRENNAN RESIDENT Dec 09, 2024 21:48 CELESTINE VILLATORO MD Dec 10, 2024 14:10
[2024-12-09] MEDS ORDERED: LEVO75TA6 PO (22:52)
[2024-12-09] MEDS ORDERED: DOXE10CA PO (22:52)
[2024-12-10] VITALS (8 sets, daily range): BP systolic 80–119; BP diastolic 40–72; PULSE 66–89; RESP 18–20; TEMP 97.5–98.6; O2SAT 92–100
[2024-12-10] MEDS: PANTOPRAZOLE 40 MG TAB PO SCH (06:02)
[2024-12-10] MEDS: POLYETHYLENE GLYCOL 17 GM PWDR PO ONE (12:01)
[2024-12-10] MEDS: SENNA 8.6 MG TAB PO ONE (12:02)
[2024-12-10 13:01] LABS: Urine Bacteria FEW /hpf (None Seen); Urine Blood Negative /uL (Negative); Urine Clarity Clear (Clear); Urine Color Colorless (Yellow); Urine Protein, UAD Negative (Negative); Urine Specific Gravity 1.006 (1.001-1.035); Urine Squamous Epithelial Cell FEW /hpf (<5); Urine Urobilinogen Normal (Negative); Urine WBC <1 /hpf (0 - 5); Urine pH 6.5 (5.0-9.0)
[2024-12-10] MEDS: LORazepam 2MG/ML-1ML VIAL IV PRN (14:50)
--- NOTE | 2024-12-10 20:47 | DVHPN2 ---
Progress Note - Dictate Date Seen: Dec 10, 2024 Has the PT tested + for MRSA If YES, has PT been informed?: No Medical Necessity Reason Pt with a Central, PICC or Fol: No Subjective She has left Ms. Dominique is a 49 years old right-handed female with a history of laryngeal cancer, hypothyroidism, obesity, she was brought to the [facility] on 12/08[facility]2024 with a chief company of passing out. At this time, she was alert and fully oriented, her is with her in the room, she provided the following history On 12/08/2024, she was walking inside the house, but the next memory was waking up from a passing out, with confusion and foggy feeling, but on waking up, she was consciousness to person, place, and she new she was working from home. She passed out for less than 1 minutes. There was no dizziness, hot feeling, chest pain, nausea, vomiting associated with event For the last 12 years, the patient was has had similar passing out event, but it was associated with dizziness as warning symptoms, and mostly the patient is able to see down to avoid a passing out. She typically pass out for less 1 minute, and on wake, she was conscious to everything. She was had total 6-7 event in 2023. She was seen many doctors in different offices, Hospital, but etiology remained unclear She does not paresthesia in the lower extremities She drinks about two bottles of water daily Urinalysis, 12/08/2024: WBC: 13, urine leukocyte esterase: 2+ UDS, 12/08/2024: Positive CBC, 12/08/2024: Unremarkable new line CMP, 12/08/2024: Unremarkable TSH, 12/08/2024: 0.31 FT4, 12/08/2024: 1.42 Echocardiogram, 12/09/2024: Normal left ventricular size and systolic function. Ejection fraction is estimated at 60%. Normal right ventricular size and systolic function. No hemodynamically significant valvular disease. No pericardial effusion. PA systolic pressure could not be estimated. Carotid Doppler 12/08/2024: 1. No evidence of hemodynamically significant CCA or ICA stenosis. 2. High-grade stenosis of the proximal right external carotid artery MRI brain, 12/09/2024: There is no acute intracranial process General: the patient is well developed and nourished. No acute distress. MENTAL STATUS: Awake and alert. Oriented to person, place, time and general circumstances. Able to give personal history. SPEECH, LANGUAGE, HIGHER CORTICAL FUNCTION: No aphasia, mild dysarthria CRANIAL NERVES: Pupils are equal, round and reactive. EOMs full and conjugate. No nystagmus. Facial sensation intact in all three divisions bilaterally. Mandibular strength intact. Facial muscles symmetrical and strength intact. SENSATION: Sensation to touch and pinprick is normal. MOTOR: Normal tone in the upper and lower extremity. Normal muscle bulk. No fasciculations. No abnormal movements or posturing. Muscle strength of the major groups in the extremities is 5/5. REFLEXES: Deep tendon reflexes are symmetrical. No pathological reflexes. CEREBELLAR/COORDINATION: Finger to nose is normal bilaterally. GAIT/STATION: deferred Recurrent syncope/presyncope events, etiology unclear Monitoring Supportive treatment Telemetry EEG Syncopal precautions discussed Cardiology evaluation More recommendation per clinical course This medical document was created using an electronic medical record system with [employer] dictation system. Although this document has been carefully reviewed, there may still be some phonetic and typographical errors. These areas are purely typographical due to imperfections of the software programs, and do not reflect any compromise in the patient's medical care. vital signs Vital Sign Date Time Temp Pulse Resp B/P (MAP) Pulse Ox O2 Delivery O2 Flow Rate FiO2 12/10/24 18:34 98.6 80 18 92 12/10/24 17:01 119/72 (88) 12/10/24 08:00 Room Air* 0 21 Total Intake and Output 12/09/24 12/09/24 12/10/24 15:00 23:00 07:00 Intake Total 2025 ml 300 ml 100 ml Output Total 300 ml Balance 2025 ml 300 ml -200 ml medications Current Medications Medications Dose Ordered Sig/Charisma Route Start Time Stop Time Status Last Admin Dose Admin Sodium Chloride 1,000 ml @ 75 mls/hr [id number] IV 12/08/24 19:30 12/10/24 01:44 75 MLS/HR Ketorolac Tromethamine 15 mg Q6HPRN PRN IV 12/08/24 19:30 12/13/24 19:29 Ibuprofen 600 mg Q6HP PRN PO 12/08/24 23:00 12/10/24 14:50 600 MG Pantoprazole Sodium 40 mg DAILY@0600 PO 12/10/24 06:00 12/10/24 06:02 40 MG Lorazepam 1 mg ONCE PRN IV 12/09/24 10:30 12/10/24 14:50 1 MG Ondansetron HCl 4 mg Q4HPRN PRN IV 12/09/24 18:30 12/09/24 18:38 4 MG laboratory and microbiology Laboratory Tests 12/08/24 19:50 Test 12/08/24 19:50 Range/Units Serum Glucose 87 74-106 mg/dL Assessment/Plan Recurrent syncope/presyncope events, etiology unclear Plan discussed with: Other EMILI REID MD Dec 10, 2024 20:47
--- NOTE | 2024-12-10 21:28 | DVHEEG2 ---
Neurology EEG Procedural Note Procedural Note EXAM DATE: 12/10/2024 REFERRING DOCTOR: Dr. Reid TECHNIQUE: Eighteen channels of EEG, 2 channels of EOG, and 1 channel of EKG were recorded using the International 10/20 system. CLINICAL DATA: The patient was referred for an EEG evaluation for the evidence of seizure disorder. MEDICATIONS: See chart BACKGROUND ACTIVITY: While the patient was awake, the background activity appeared to be fairly regulated 10-11 Hz rhythmic waveforms, symmetrically distributed over both posterior quadrants and was reactive to external stimuli, intermixed with this was diffuse low amplitude rhythmic beta activity over both hemispheres ACTIVATION: Hyperventilation: Not done Photic Stimulation: Not done Sleep: Stage I and II IMPRESSION: This is an essentially normal EEG. The diffuse low amplitude rhythmic beta activity is likely medication effects with benzodiazepine. There was no focal, lateralized, or epileptiform features are noted. If clinically indicated to rule out a seizure disorder, recommend repeat EEG with sleep deprivation. The EKG channel showed a regular heart rate of 84/min. [place] [address] EMILI REID MD Dec 10, 2024 21:28
--- NOTE | 2024-12-10 22:29 | DVHDSRES ---
Discharge Summary Date of Admission Resident Creating Document: GA BRENNAN RESIDENT Dec 08, 2024 at 22:44 Date of Discharge: Dec 10, 2024 Admitting Diagnosis syncope Labs/Diagnostic Data: Laboratory Results Test 12/10/24 12:30 12/09/24 07:36 12/08/24 21:10 12/08/24 19:50 Urine Color Colorless (Yellow) Urine Clarity Clear (Clear) Urine pH 6.5 (5.0-9.0) Urine Specific Carroll 1.006 (1.001-1.035) Urine Protein Negative (Negative) Urine Ketones Negative (Negative) Urine Blood Negative /uL (Negative) Urine Nitrite Negative (Negative) Urine Bilirubin Negative (Negative) Urine Urobilinogen Normal mg/dL (Negative) Urine Leukocyte Esterase Negative /uL (Negative) Urine RBC <1 /hpf (0 - 4) Urine WBC <1 /hpf (0 - 5) Urine Squamous Epithelial Cells Few /hpf (<5) Urine Bacteria Few /hpf (None Seen) Urine Glucose Normal mg/dL (Normal) Iron Level 37 ug/dL (50-170) Total Iron Binding Capacity 194 ug/dL (250-425) Percent Iron Saturation 19.1 % (15-50) Cortisol AM Sample 15.05 ug/dL (5.27-22.45) Urine Test Negative (Negative) Urine Opiates Screen Neg (NEGATIVE) Urine Fentanyl Screen Neg (NEGATIVE) Urine Barbiturates Screen Neg (NEGATIVE) Urine Phencyclidine Screen Neg (NEGATIVE) Urine Amphetamines Screen Neg (NEGATIVE) Urine Benzodiazepines Screen Neg (NEGATIVE) Urine Cocaine Screen Neg (NEGATIVE) Urine Cannabinoids Screen Pos (NEGATIVE) White Blood Count 7.2 10^3/uL (4.4-10.8) Red Blood Count 4.09 10^6/uL (4.0-5.20) Hemoglobin 12.8 g/dL (12.2-16.2) Hematocrit 37.9 % (36.0-46.0) Mean Corpuscular Volume 92.7 fL (80.0-100.0) Mean Corpuscular Hemoglobin 31.2 pg (28.0-32.0) Mean Corpuscular Hemoglobin Concent 33.7 g/dL (32.0-36.0) Red Cell Distribution Width 13.4 % (11.8-14.3) Platelet Count 283 10^3/uL (140-450) Mean Platelet Volume 7.4 fL (6.9-10.8) Neutrophils (%) (Auto) 83.0 % (37.0-80.0) Lymphocytes (%) (Auto) 10.3 % (10.0-50.0) Monocytes (%) (Auto) 5.7 % (0.0-12.0) Eosinophils (%) (Auto) 0.9 % (0.0-7.0) Basophils (%) (Auto) 0.1 % (0.0-2.0) Neutrophils # (Auto) 6.0 10 ^3/uL (1.6-8.6) Lymphocytes # (Auto) 0.7 10 ^3/uL (0.4-5.4) Monocytes # (Auto) 0.4 10 ^3/uL (0-1.3) Eosinophils # (Auto) 0.1 10 ^3/uL (0-0.8) Basophils # (Auto) 0 10 ^3/uL (0-0.2) Nucleated Red Blood Cells 0.1 % Prothrombin Time 10.5 sec (9.3-11.8) Prothrombin Time INR 0.99 (0.9-1.15) Activated Partial Thromboplast Time 28.1 SEC (24.5-34.5) Sodium Level 139 mmol/L (136-145) Potassium Level 3.6 mmol/L (3.5-5.1) Chloride Level 106 mmol/L (98-107) Carbon Dioxide Level 26 mmol/L (20-31) Anion Gap 7 (5-15) Blood Urea Nitrogen 8 mg/dL (9-23) Creatinine 0.75 mg/dL (0.550-1.02) Glomerular Filtration Rate Calc 98 mL/min (>90) BUN/Creatinine Ratio 10.7 (10.0-20.0) Serum Glucose 87 mg/dL (74-106) Lactic Acid Level 0.9 mmol/L (0.4-2.0) Calcium Level 9.6 mg/dL (8.7-10.4) Magnesium Level 2.1 mg/dL (1.6-2.6) Total Bilirubin 0.7 mg/dL (0.2-1.0) Aspartate Amino Transferase (AST) < 8 U/L (13-40) Alanine Aminotransferase (ALT) 18 U/L (7-40) Alkaline Phosphatase 64 U/L (46-116) Ammonia < 10 umol/L (11-32) Total Protein 6.2 g/dL (5.7-8.2) Albumin 4.2 g/dL (3.2-4.8) Thyroid Stimulating Hormone (TSH) 0.31 uIU/mL (0.55-4.78) Free Thyroxine (T4) Calculated 1.42 ng/dL (0.89-1.76) Free Triiodothyronine (T3) pg/mL 2.28 pg/mL (2.3-4.2) Other Laboratory Tests 12/08/24 19:50 Brief Hx & Hospital Course: A 49-year-old female with a history of recurrent syncope since age 23 was admitted for evaluation after a brief loss of consciousness without prodromal symptoms. Workup revealed high-grade stenosis of the proximal right external carotid artery, but this was deemed unrelated to her syncope episodes. Neurological and cardiac evaluations, including a normal MRI, EEG and echocardiogram with normal EF, ruled out significant abnormalities. Dehydration and hypotension were identified as primary contributors to her symptoms. She was treated with IV fluids Thyroid function tests showed suppressed TSH (0.31) with normal free T4 and T3, . Constipation was managed with lactulose. The patient was stable at discharge, with no recurrent syncope after treatment. She was advised to follow up with primary care, cardiology and neurology. Spoken with vascular surgery, no intervention were consider to the stenosis of the external carotid artery. She will also follow up with neurology for continued evaluation of autonomic dysfunction. Instructions included maintaining adequate hydration, monitoring for recurrence of symptoms. Education about syncope: high intake of fluids and salt was advised. urine culture pending to be f/u in dc clinic GENERAL EXAM: General: the patient is well developed and nourished. No acute distress. HEENT: Normocephalic, neck is supple, no carotid bruits. No mass. RESPIRATORY: Normal respiratory effort with symmetrical lung expansion. Lungs clear to auscultation. CARDIOVASCULAR: Regular rate and rhythm with no murmurs. S1, S2. ABDOMEN: Soft, nontender, normal bowel sound NEURO: no focal deficit Case discussed with Dr Villatoro Consults/Reason for consult neurology, cardiology due to syncope Operations or Procedures MRI BRAIN WITHOUT CONTRAST CLINICAL HISTORY: aloc TECHNIQUE: Multiplanar, multisequence MR images of the brain without intravenous contrast. Comparison: None FINDINGS: CT head 12/08/2024 There is no restricted diffusion. There are few scattered small hyperintense T2 foci in the supratentorial white matter May relate to minimal chronic microvascular ischemic changes. There is no evidence of hemorrhage, mass, mass effect or midline shift. There is no hydrocephalus or extra-axial fluid collection. The visualized intracranial vasculature demonstrates appropriate flow-voids. The sagittal midline structures appear unremarkable. The craniocervical junction is within normal limits. The calvarium demonstrates normal marrow signal. The paranasal sinuses and mastoid air cells are clear. IMPRESSION: 1. There is no acute intracranial process. US CAROTID DOPPLER CLINICAL INDICATION: Syncope TECHNIQUE: Multiple grayscale, color Doppler and spectral Doppler ultrasound images were obtained throughout both carotid systems. COMPARISON: None FINDINGS: RIGHT: CCA PSV: 74 cm/s ECA PSV: 461 cm/s proximally ICA PSV: 134 cm/s ICA EDV: 55 cm/s ICA/CCA Ratio: Less than 2 Vertebral artery: Patent, antegrade flow. Grayscale images demonstrate calcified plaque at the carotid bifurcation. Marked stenosis of the proximal external carotid artery. Spectral analysis demonstrates no hemodynamically significant CCA or ICA stenosis. LEFT: CCA PSV: 69 cm/s ECA PSV: 54 cm/s ICA PSV: 98 cm/s ICA EDV: 41 cm/s ICA/CCA Ratio: Less than 2 Vertebral artery: Patent, antegrade flow. Grayscale images demonstrate no significant plaque or visible stenosis. Spectral analysis demonstrates no hemodynamically significant CCA or ICA stenosis. IMPRESSION: 1. No evidence of hemodynamically significant CCA or ICA stenosis. 2. High-grade stenosis of the proximal right external carotid artery. APPROVED REPORT EXAM: Two-dimensional and M-mode echocardiogram with Doppler and color Doppler. Blood Pressure: 96/50 mmHg INDICATION Syncope RISK FACTORS Obesity: Height: 5'3, Weight: 154 DIMENSIONS LVDd 4.2 (3.8-5.7cm) LA (2D) 3.0 (1.9-4.0cm) Aortic Root 2.4 (2.0- 3.7cm) LVDs 3.1 (2.5-4.0cm) LA (MM) (1.9-4.0cm) Aortic Cusp Exc 1.2 (1.5- 2.0cm) EF (%) 60.0 (55-70%) Rt. Atrium 2.2 (1.9-4.0cm) Asc. Aorta cm IVSd 0.7 (0.7-1.1cm) RV (D) (1.8-2.4cm) PWd 0.9 (0.7-1.1cm) Mitral Valve Mitral Mitral Stenosis E wave 0.70m/s MV Mean GR. mmHg A wave 0.65m/s MV Peak GR. mmHg E/A ratio 1.1 2D MVA cm2 DECEL Time 142ms PRESS 1/2 Time ms Aortic Valve Aortic Valve Aortic Stenosis V1 1.00m/s AO Mean GR. 5mmHg V2 1.34m/s AO Peak GR. 7mmHg LVOT Diameter 1.8 (1.8-2.4cm) Doppler ENZO 1.90cm2 Pulmonic Valve V2 0.95m/s LEFT VENTRICLE The left ventricle is of normal size. Wall thickness is normal. Ejection fraction is normal and is estimated at 60%. There is no regional wall motion abnormalities. Diastolic function is preserved. RIGHT VENTRICLE The right ventricle is likely of normal size. Systolic function is normal. ATRIA Both atria are normal. Not well visualized. MITRAL VALVE Normal structure and function. No significant mitral regurgitation. PULMONIC VALVE Likely normal. TRICUSPID VALVE Normal structure and function. There is trace tricuspid regurgitation. PA systolic pressure is not adequately estimated. AORTIC VALVE Normal structure and function. GREAT VESSELS Aortic root is of normal size. PERICARDIAL EFFUSION No pericardial effusion. IVC is of normal size and collapses normally with inspiration. Other Information Technically limited study due to patient position. Conclusion Normal left ventricular size and systolic function. Ejection fraction is estimated at 60%. Normal right ventricular size and systolic function. No hemodynamically significant valvular disease. No pericardial effusion. PA systolic pressure could not be estimated. Condition at Discharge: Stable Final Diagnosis/Problems List Syncope due to dehydration Hypotension Possible autonomic dysfunction Recurrent syncopal episodes Stenosis of proximal right external carotid artery, high-grade Hypothyroidism History of laryngeal carcinoma 26 years ago, s/p radiotherapy Constipation Discharge Disposition: Home Discharge Instruct/Medications Diet: Regular Diet comment: high intake of salt drink a lot of fluids Activity: Light activity Follow Up/Referral: f/u with dc clinic on saturday, neurologist and cardiology Medications: see prescription Discharge Statement: "Patient was advised to return to the ER or call 911 if any headaches, dizziness, shortness of breath, chest pain, abdominal pain, bleeding, fevers, or worsening of medical condition. Patient was counseled about treatment plan, medications, possible side effects, patientverbalized understanding. All questions were answered to the best of my ability. This discharge took greater then 30 minutes in planning, reviewing documentation, counseling the patient, and discussing with other team members." ASSESSMENT ASSESSMENT Assessment Syncope and possible autonamic dysfunction Date of Service: Dec 10, 2024 Billing Provider: CELESTINE VILLATORO MD Common Visit Codes: 64885-WEW/OBS DISCH DAY >30min GA BRENNAN RESIDENT Dec 10, 2024 22:29 CELESTINE VILLATORO MD Dec 11, 2024 15:41
== END 2024-12-10 19:30 | disposition home or self-care (01) | DRG 422 ==
LOC: EDBD 18:39 → ER 18:39 → TELE 22:44 → TELE-E-ADS 12-09 21:39 → UNDODISIN 12-10 14:55
PROVIDERS: ADMIT Student in an Organized Health Care Education/Training Program; ATTEND Student in an Organized Health Care Education/Training Program
DX: E86.0 Dehydration (principal); G90.89 Other disorders of autonomic nervous system; I95.9 Hypotension, unspecified; G90.01 Carotid sinus syncope; E03.9 Hypothyroidism, unspecified; I65.21 Occlusion and stenosis of right carotid artery; K59.00 Constipation, unspecified; Z92.3 Personal history of irradiation; Z85.21 Personal history of malignant neoplasm of larynx; Z79.899 Other long term (current) drug therapy
CPT/HCPCS: 36415; 70450; 70551; 73080; 73110; 73502; 80053; 80307; 81001; 81025; 82140; 82533; 83540; 83550; 83605; 83735; 84439; 84443; 84481; 85025; 85610; 85730; 87086; 93005; 93306; 93886; 95819; G0378; J1885; J2405